=== PATIENT | male | born 1955 | race Caucasian/White ===

== ENCOUNTER 2024-04-15 06:29 | Inpatient (IN) | payer OTHER, SELFPAY ==
[2024-04-15] VITALS (41 sets, daily range): BP systolic 98–184; BP diastolic 51–98; BMI 34.5; BMI 33.8
--- NOTE | 2024-04-15 04:11 | ED.GENMED ---
History of Present Illness
General
Chief Complaint: Chest Pain
Source: patient
Exam Limitations: none
Time Seen by Provider: 04/15/24 03:17
Nursing documentation reviewed up to this point in time: agreed with
History of Present Illness
History of Present Illness:
Pleasant 68-year-old male presents to the emergency department with substernal nonradiating chest pain that began around 2 in the morning. Patient states that he is having symptoms for the last week. He works out daily and does cardio warm up and
cool down. During his cooldown he has been getting some chest pain during exertion. He was seen by his emulsification operator Dr. Gonzalez for the first time today, and scheduled for a stress test in 2 weeks. Patient is concerned because his dad had his
first heart attack at age 51 but ultimately lived to 87 years of age. His brother at age 61 from an NM. Patient tries to maintain a healthy lifestyle.
Past History
Past History
ED Past Medical History: HTN, Hypercholesterolemia and Other (Previous known left meniscal tear 2011 previous testicular cancer)
Social History
Tobacco: Non-smoker
Alcohol: Occasional
Family History
Family History: Negative Diabetes
Review of Systems
Review of Systems
Allergies reviewed?: Yes
All Other Systems: ROS reviewed and negative except as documented in HPI and ROS
Constitutional: Reports no symptoms
EENT: Reports no symptoms
Respiratory: Reports no symptoms
Cardiac: Reports chest pain and other (Dyspnea on exertion)
ABD/GI: Reports no symptoms
: Reports no symptoms
Musculoskeletal: Reports no symptoms
Skin: Reports no symptoms
Neurological: Reports no symptoms
Endocrine: Reports no symptoms
Hematologic/Lymphatic: Reports no symptoms
Psychiatric: Reports no symptoms
Phy Exam
General Physical Exam
General Presentation: well appearing and no apparent distress
General Skin: warm and dry
General Habitus: normal
General Mental: alert
General Hydration: appears well hydrated
ENT Exam
ENT Exam: EOMI, pharynx normal, neck supple and normocephalic
Eye Exam
Eye Exam: PERRL, cornea clear and conjunctiva normal
Cardiovascular Exam
Cardiovascular Exam: regular rate/rhythm, no edema, no murmur and normal peripheral pulses
Pulmonary Exam
Pulmonary Exam: lungs clear, no respiratory distress, no rales, no crackles, no rhonchi, no stridor, no wheezing and no cough
Gastrointestinal Exam
Gastrointestinal Exam: normal bowel sounds, non tender, soft, no organomegaly, no pulsatile mass and non distended
Neurological Exam
Neurological Exam: alert, oriented x3, no motor deficits and speech normal
Musculoskeletal Exam
Musculoskeletal Exam: full ROM and no edema
Skin Exam
Skin Exam: normal color, warm/dry, no rash and no petechia
Psychiatric Exam
Psychiatric Exam: normal mood/affect
Scores
Heart Score for Chest Pain Patients
STEMI patient?: No
History: Highly Suspicious
ECG: Nonspecific Repolarization
Age: >/= 65 years
Risk Factors: 1 or 2 Risk Factors
Troponin: >1 - <3 x Normal Limit
Heart Score for Chest Pain Patients: 7
Heart Score Risk: 72.7 % MACE over next 6 weeks
Course
Orders/Labs/Results
Orders:
Orders
04/15/24 02:30
ECG [Electrocardiogram (*1)] Urgent
Reason for Study: Chest Pain
EKG- Treatment ONCE
04/15/24 03:59
Complete Blood Count/With Diff Urgent
Comprehensive Metabolic Panel Urgent
Troponin I Urgent
04/15/24 05:10
PTT Urgent
Comment: Obtain baseline before beginning heparin infusion if not already collected
Heparin 4,000 units IV NOW STA
Nursing to Place Non Medication Order As Directed
Physician Order: PTT 6 hours after initial start of Heparin infusion
04/15/24 05:13
CR Chest - 2 Views Urgent
Comment:
Reason For Exam: cp
04/15/24 05:15
Heparin 37031 Units/250 ml 25,000 units in 250 ml IV PER PROTOCOL
Weight to be used for heparin protocol in kilograms (kg):: 99.8
Protocol:: Cardiac Tx/Acute Coronary
PTT Goal Range to be used:: PTT 73 to 111 seconds
Order type:: Initial
INITIAL Infusion Dose (UNITS/KG/hr) & then follow protocol:: 15 units/kg/hr
Infusion Dose in UNITS/hr & then follow protocol (UNITS/hr):: 1,500
INFUSION RATE in mL/hr & then follow protocol (mL/hr):: 15
PTT less than or equal to 64 seconds:: Increase rate by 200 units/hr (+ 2 mL/hr)
PTT 64.1 to 72.9 seconds:: Increase rate by 100 units/hr (+ 1 mL/hr)
PTT 73 to 111 seconds:: Target Range. No change in rate.
PTT 111.1 to 130.9 seconds:: Decrease rate by 100 units/hr (- 1 mL/hr)
PTT 131 to 199.9 seconds:: HOLD for 1 hr. Then decrease rate by 200 units/hr (- 2 mL/hr)
PTT greater than or equal to 200 seconds:: HOLD for 2 hrs & Notify Provider. Then decrease by 200 units/hr (-
2 mL/hr)
Lab follow-up:: Each change, PTT q6h until 2 consecutive are therapeutic. Then PTT
daily.
04/15/24 05:58
Admit/Transfer Patient As Directed
Co-Sign Provider:
Level of Care: Inpatient admission
Assign to:: IVU
Physician / Group: Jesus
Diagnosis: NSTEMI
Reason for Hospitalization: NSTEMI
Expected length of stay greater than two midnights?: Yes
ELOS- Estimated Length of Stay in days: 3
I certify the patient meets the requirements for IP care: Yes
04/15/24 05:59
Code Status As Directed
Resuscitation Status: Full Code
PRN Pain Medication Management As Directed
May give lesser potent ordered pain med per pt: Yes
preference::
Protocol:: Medication orders for pain may be administered in a
manner that supports deferring to patient preference
when the pt is:
- Requesting an ordered lesser potent pain medication.
Least to most potent pain medications are defined
as: acetaminophen < NSAID < tramadol < opioids
(morphine, oxycodone, hydromorphone).
- Requesting a lesser dose of the same medication IF
ORDERED.
- Requesting a less intrusive route of administration
if both routes are prescribed by the provider (PO <
IV).
04/15/24 06:14
EKG [Electrocardiogram (*1)] Urgent
Reason for Study: Chest Pain
Abnormal Lab Results
04/15/24
03:59
MCH 31.4 H pg
(27.0-31.0)
Glucose 151 H mg/dl
(70-99)
Troponin I 0.044 H* ng/ml
04/15/24 03:59
04/15/24 03:59
Vital Signs
Initial and Last Documented VS:
Initial Vital Signs
Pulse Resp BP Pulse Ox
64 18 184/94 98
04/15/24 02:39 04/15/24 02:39 04/15/24 02:39 04/15/24 02:39
Last Documented Vital Signs
Pulse Resp BP Pulse Ox
67 14 138/81 98
04/15/24 06:00 04/15/24 06:00 04/15/24 06:00 04/15/24 02:39
*Pulse Oximetry
Patient hypoxic: no
*EKG
Interpreted by ED Provider?: Yes
Interpretation: abnormal
Heart Rate: 72
Rate: normal
Rhythm: PVC's
QRS Pattern: normal QRS
Ischemia: non-specific ST changes
*Vrt Mechanic Interpretation
Rate: normal
Interpretation: normal
Heart Rate: 66
Rhythm: sinus
*Critical Care Note
Total Time (30-74mins, 75-104mins- exclusive of procedures): 30 (Critical care statement: A total of 30 minutes of critical care time was provided for this patient. This time is separate from time utilized to perform the aforementioned documented
procedures. Aggregate critical care time includes only time during which I was engaged in work directl)
ED Attending Note
-
Portions of this chart may have been created with voice recognition software.� Occasional wrong word or��sound alike� substitutions may have occurred due to the inherent limitations of voice recognition software.
Discharge Plan
Departure
Patient Disposition: Admit
Date of Disposition: 04/15/24
Time of Disposition: 05:15
Presentation/result/management discussed w/ accepting MD/DO: Hospitalist
Discharge Problem:
ACS (acute coronary syndrome)
Interventions
Interventions:
*Risk Screen - Suicide Last Done: 04/15/24 02:30
*General Assessment Last Done: 04/15/24 04:00
*Neglect/Abuse Screening Last Done: 04/15/24 02:30
ED- Fall Risk Assessment Last Done: 04/15/24 04:00
*ED COVID-19 Vaccine History Last Done: 04/15/24 06:07
ED- Cardiac Assessment Last Done: 04/15/24 02:30
[2024-04-15 04:15] LABS: % Basophils 0.9 % (0-2); % Eosinophils 4.1 % (0-6); % Immature Granulocytes 0.2 % (0-0.5); % Lymphocytes 27.7 % (20.5-51.1); % Monocytes 7.2 % (1.7-9.3); % Neutrophils 59.9 % (42.2-75.2); Absolute Basophils 0.1 10^3/uL (0-0.2); Absolute Eosinophils 0.3 10^3/uL (0-0.7); Absolute Lymphocytes 1.8 10^3/uL (1.2-3.4); Absolute Monocytes 0.5 10^3/uL (0.1-0.6); Absolute Neutrophils 3.9 10^3/uL (1.4-6.5); Hematocrit 45.3 % (39.0-52.0); Hemoglobin 15.9 g/dL (13.0-18.0); Mean Corp Hgb Conc. 35.1 g/dL (33.0-37.0); Mean Corpuscular Hgb 31.4 pg (27.0-31.0); Mean Corpuscular Volume 89.3 fL (80.0-94.0); Mean Platelet Volume 10.3 fL (7.4-10.4); Nucleated Red Blood Cells % 0 % (-); Platelet Count 186 10^3/uL (130-400); Red Blood Cell Count 5.07 10^6/uL (4.70-6.10); Red Cell Dist. Width 11.8 % (11.5-14.5); White Blood Cell Count 6.5 10^3/uL (4.8-10.8)
[2024-04-15 04:36] LABS: ALT (SGPT) 47 U/L (0-50); AST (SGOT) 39 U/L (17-59); Albumin 4.5 g/dl (3.5-5.0); Alkaline Phosphatase 71 U/L (38-126); Blood Urea Nitrogen 17 mg/dl (9-20); Calcium 9.4 mg/dl (8.4-10.2); Carbon Dioxide 25 mmol/L (22-30); Chloride 102 mmol/L (98-107); Glucose 151 mg/dl (70-99); Potassium 4.4 mmol/L (3.5-5.1); Sodium 138 mmol/L (135-145); Total Bilirubin 0.8 mg/dl (0.2-1.3); Total Protein 7.1 g/dl (6.3-8.2); eGFR > 60.00
[2024-04-15 04:56] LABS: Troponin I 0.044 ng/ml
[2024-04-15] MEDS: HEPARIN 4000 UNITS IV (05:59)
--- NOTE | 2024-04-15 06:04 | HPS.HSE ---
Family Physician
-
Family Physician: NOT KNOW UNKNOWN - PT DOES
Chief Complaint
-
Chest Pain
History of Present Illness
Patient is a 68y M with PMH significant for testicular cancer who presents to ED complaining of chest pain. Patient states that he has noted L sided chest discomfort / L shoulder discomfort with exertion over the past week or so. He experienced
these symptoms during work-outs. He had associated SOB / ALVAREZ. His symptoms did improve with rest. Patient was seen by Cardiology 04/14 for evaluation of his persistent symptoms. Further outpatient evaluation was scheduled including stress test
and echo.
This evening, patient woke from sleep around 2 AM with crushing substernal chest pain. This pain was distinctly different from his prior, left-sided, exertional pain.
Pain was described as 'sitting on my chest' and was initially accompanied by diaphoresis.
Patient presented to the ED for further evaluation. His pain was 6/10 at it's peak. At the time of my examination his pain is 2/10.
He has no additional symptoms at this time.
Patient has no personal history of heart disease; however, he does have strong family history of CAD.
He takes ASA 81mg daily and no other chronic medications.
Medical History
Past Medical History
Past Medical History: Reports Other
Additional Past Medical History:
Testicular Cancer s/p Surgery and Chemo
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
Past Surgical History: Reports Other
Additional Past Surgical History:
Left Orchiectomy
Right Inguinal Hernia Repair
Left Shoulder Surgery
Tight RISA
T&A
Social History
Tobacco: Non-smoker
Alcohol: Occasional
Drug: None
Family History
Family History: Other (PGF: CAD Father: CAD Mother: DM, intracranial hemorrhage Brother: CAD)
Allergies / Home Medications
Allergies reflects when Allergies were last updated in [employer].
Home Medications with original date entered in [employer]
Allergy/Medication List:
Allergies
Allergy/AdvReac Type Severity Reaction Status Date / Time
No Known Allergies Allergy Verified 04/15/24 02:41
Home Medications
aspirin 81 mg tablet,delayed release 81 mg PO DAILY 01/28/18
Review of Systems
-
History Source: Patient
A 12 point ROS was completed and negative except as noted: Yes
Constitutional: Denies Fever or Chills
Respiratory: Reports Trouble Breathing; Denies Cough
Cardiac: Reports Chest Pain and Diaphoresis; Denies Palpitations
Abdomen/GI: Denies Abdominal Pain, Nausea, Vomiting or Diarrhea
: Denies Dysuria or Frequency
Musculoskeletal: Denies Joint Pain or Edema
Neurological: Denies Dizzy or Headache
Psych: Denies Depression or Anxiety
Physical Exam
Vital Signs
Vital Signs
Pulse Resp BP Pulse Ox
62 23 147/81 98
04/15/24 05:00 04/15/24 05:00 04/15/24 05:00 04/15/24 02:39
Physical Exam
General: Other (68y M in no acute distress.)
HEENT: Moist mucous membranes, PERRLA and Other (Thick neck.)
Respiratory: Clear; No Wheezes, Rales or Rhonchi
Cardiac: S1/S2 and Regular Rhythm; No Murmur
GI: Soft, Non Tender, Non Distended and Normal Bowel Sounds
Musculoskeletal: No Clubbing, No Cyanosis and No Edema
Neuro: AO x 3
Laboratory Results
-
04/15/24 03:59
04/15/24 03:59
Laboratory Results
Total Bilirubin 0.8 mg/dl (0.2-1.3) 04/15/24 03:59
AST 39 U/L (17-59) 04/15/24 03:59
ALT 47 U/L (0-50) 04/15/24 03:59
Alkaline Phosphatase 71 U/L (38-126) 04/15/24 03:59
Troponin I 0.044 ng/ml H* 04/15/24 03:59
Impression/Plan
-
A/P: Patient is a 68y M with PMH significant for testicular cancer and strong family history of CAD who presents to ED complaining of crushing substernal chest pain that woke him from sleep.
NSTEMI / ACS
- Admit for further evaluation and treatment.
- One week of exertional symptoms and woke this evening with more severe / different chest pain.
- EKG with non-specific ST changes - specifically in V2 - V4 - new compared to prior. Repeat tracing now to assess for evolution.
- Initial troponin is 0.044 - trend to peak.
- Pain improved, but not fully resolved. Begin IV NTG gtt and titrate as needed until pain free.
- IV heparin.
- ASA, statin, beta-caryn.
- Cardiology evaluation for further recommendations and probable ischemic evaluation.
- Follow for any new / worsening pain or other symptoms.
- Check lipid panel, A1C, etc.
History of Testicular Cancer s/p Surgery and Chemo
History of Inflammatory Lung Disease
- Both resolved. No active / ongoing issues.
DVT Prophylaxis: On IV Heparin
Code Status: Full
[2024-04-15] MEDS: HEPARIN 25000 UNITS/250 ML IV (06:48)
[2024-04-15 07:08] LABS: APTT 121.7 Sec (23.4-35.0)
--- NOTE | 2024-04-15 07:20 | EDRN ---
Report given to BERT Blackman in IVU.
--- NOTE | 2024-04-15 08:12 | EDRN ---
Patient taken to room 2258 on monitor with Heparin drip infusing at 1500 units/HR. Patient with c/o 'constant nagging' in his chest but not pain. Patient stated that it's not the same feeling that brought him to the hospital. BERT Blackman updated at
bedside.
--- NOTE | 2024-04-15 08:30 | CON.CAR ---
Consultation
Consultation Request
Date/Time Consultation Requested: 04/15/24 0800
Date/Time Consultation Performed: 04/15/24 0830
Requesting Provider: Dr. Lee
Performing Provider: Kristine VYAS for Dr. Gonzales
Reason for Consultation: NSTEMI
Medical History
-
Chief Complaint: chest discomfort
History of Present Illness:
68 y/o male (patient of Dr. Gonzalez) with hypertension and family history of early CAD (dad and brother) who was seen as a new patient in our cardiology office yesterday for exertional left/arm chest discomfort. Also has noted some ALVAREZ. Stress
test and echo were ordered for further evaluation. However, overnight, he developed chest discomfort- midsternal feels like something sitting on his chest. First trop is 0.044. At the time of my assessment, he is calm and in no distress, but
continued to have low level chest discomfort (never resolved). Nitro SL given (improved discomfort) and he is being placed on a nitro drip.
Past Medical History
Past Medical History: HTN
Past Surgical History: Orthopedic
Social History
Tobacco: Non-Smoker
Alcohol: Occasional
Personal:
Living: With Family
Family History
Family History: Early CAD (dad bypass age 51)
Allergies / Home Medications
Allergy/AdvReac Type Severity Reaction Status Date / Time
No Known Allergies Allergy Verified 04/15/24 02:41
�Medication �Instructions �Recorded �Confirmed �Type
aspirin 81 mg tablet,delayed 81 mg PO DAILY 01/28/18 04/15/24 History
release
Review of Systems
-
History Source: Patient
All other systems: Negative unless noted
Respiratory: Trouble Breathing (ALVAREZ at times)
Cardiac: Chest Pain (as described)
Physical Exam
Vital Signs
Temp Pulse Resp BP Pulse Ox
98.1 F 69 18 130/88 98
04/15/24 08:06 04/15/24 08:14 04/15/24 08:14 04/15/24 08:14 04/15/24 08:14
Lab Results
04/15/24 03:59
04/15/24 03:59
Troponin I Cancelled 04/15/24 20:00
Physical Exam
General: Well Developed, Well Nourished and No Apparent Distress
HEENT: Normocephalic and Anicteric
Respiratory: Clear and Non Labored Respirations
Cardiac: Regular Rhythm
Musculoskeletal: No Edema
Skin: Warm and Dry
Neuro: AO x 3
Psych: Calm
Impression / Plan
-
NSTEMI:
-first trop 0.044- trend to peak, EKG unremarkable
-nitro SL given (helped with CP), nitro drip being started, which requires intensive monitoring
-continue IV heparin, which requires intensive monitoring
-cardiac labor specialist today- risk/benefits discussed with patient
-check echo today
-full dose ASA now, then continue 81 mg daily. Statin initiated- check lipids. Check hgbA1C. BB also started.
HTN:
-BB started
-monitor on nitro drip
Data Reviewed
-
EKG: Tracing Personally Visualized and interpreted (NSR with LAD)
Radiology: Report Reviewed by me (no acute disease of the chest)
Labs: Labs Reviewed by me
Scores
PAUL for NSTEMI
Age >/= 65: Yes
>/=3 CAD risk factors-HTN,High Chol,Fam hx CAD,DM,Smoker: No
Known CAD (stenosis >/=50%): No
ASA use in past 7 days: Yes
Severe angina (>/= 2 episodes in 24 hrs): No
EKG ST Changes >/= 0.5mm: No
Positive cardiac marker: Yes
Score: 3
Risk at 14 days-mortality, new/recurrent VA, severe ischemia: Intermediate Risk- 13% Risk at 14 days- all cause mortality, new or recurrent VA, or severe recurrent ischemia requiring urgent revascularization
[2024-04-15] MEDS: NITROSTAT (SUBLINGUAL) 0.4 MG SL (08:58)
[2024-04-15] MEDS: LOPRESSOR 25 MG PO ×2 (08:59→19:26)
[2024-04-15] MEDS: ASPIRIN 325 MG PO (08:59)
[2024-04-15] MEDS: NITROGLYCERIN PREMIX 250 IV (09:04)
[2024-04-15 10:43] LABS: Glycohemoglobin (HgbA1c) 6.5 % (4.0-5.6)
--- NOTE | 2024-04-15 11:24 | PTCARENOTE ---
Patient admitted from the ED with Nstemi. Oriented to room and plan of care. Patient seen by Dr. Carrero, plan for cardiac cath today. IV heparin infusing at 1500 units/hr, IV NTG started as ordered at 5mcg/min. Given NTG SL x 1 upon admission for
midsternal chest pressure patient had difficulty rating but stated it was less than when he first came to the ED, following NTG chest pain is 1/10. Monitoring VS, SR on the monitor, echo done and at the bedside. Call hanna in reach, admission
assessment completed.
--- NOTE | 2024-04-15 12:37 | PTCARENOTE ---
Patient taken for his cardiac cath.
[2024-04-15 13:10] LABS: ACT-LR - POC 374 Seconds (116-155)
[2024-04-15 14:13] LABS: ACT-LR - POC 397 Seconds (116-155)
[2024-04-15] MEDS: NSS 1000 IV (14:30)
--- NOTE | 2024-04-15 14:57 | CM ---
CM following for DC planning needs.
Met w/ patient at bedside to complete initial assessment.
Pt. resides in a private home w/ his spouse. Functionally, patient is indep. at baseline w/ ADLs, mobility without the use of any assisted device.
Antic. DC plan is for home without needs.
Will cont. to follow.
[2024-04-15 15:00] LABS: ACT-LR - POC > 397 Seconds (116-155)
--- NOTE | 2024-04-15 15:40 | CM ---
Priced Brilinta thru patient's pharmacy plan, [facility]- [phone]. Estimated cost of Brilinta for a 30 d supply is 72.60.
Can provide a free 30 d coupon to pt.
--- NOTE | 2024-04-15 15:48 | ITS.CL.ANGIO ---
Farm Manager - Angioplasty
Angioplasty
Procedure Report:
CARDIAC CATHETERIZATION REPORT
Date of Procedure: 04/15/2024
Referring: Elroy Gonzales D.O.
INDICATION: Non-ST elevation myocardial infarction.
PROCEDURE:
1. Left heart catheterization
2. Coronary angiography
3. Shockwave coronary lithotripsy of the mid LAD.
4. Successful PCI of the first diagonal.
5. Successful IVUS guided diagonal of the proximal and mid LAD.
A total of 89 minutes of procedural/moderate sedation was utilized. An independent ophthalmic medical technician was present to assist with and help manage the patient's level of consciousness and physiologic status.
ACCESS:
1. 6 [place] right radial artery using a modified Seldinger technique.
CATHETERS:
1. 5 [place] JR4.
2. 5 [place] JL 3.5.
3. 6 [place] EBU 3.5 guiding catheter.
HEMODYNAMIC DATA
Weight (kg): 97.5
AO (s/d/x, mmHg): 104/71/85
LV (s/x mmHg): 104/14
LEFT VENTRICULOGRAPHY: Not performed.
CORONARY ANGIOGRAPHY
Dominance: Right.
Left Main: Congenitally absent.
LAD: Large size vessel arising directly from the aorta and giving rise to 2 significant diagonals before wrapping around the apex. There is a densely calcified, 70-80% lesion in the proximal vessel. The mid vessel is occluded immediately after
the origin of the second diagonal. There is a 90% lesion in the proximal margin of the first diagonal.
Ramus: Congenitally absent.
Circumflex: Large size, nondominant vessel giving rise to 2 large obtuse marginals. OM1 is arises very high off of the circumflex. There is no coronary artery disease.
RCA: Large size, dominant vessel with a significant posterolateral arcade. There are minor luminal irregularities throughout.
INTERVENTION(S)
1. Successful intracoronary lithotripsy of the proximal and mid LAD (shockwave 3.0 x 12 lithotripsy balloon).
2. Successful PCI of the 90% proximal first diagonal lesion (Medtronic [place] Starke 2.0 x 15 OSMIN, postdilated with a 2.0 NC balloon) with reduction in stenosis to 0%, maintaining PAUL-3 flow.
3. Successful IVUS guided PCI of the proximal and mid LAD lesions (overlapping Medtronic Pee Star[place] 3.0 x 30 OSMIN, 4.0 x 12 OSMIN, postdilated with a 3.0 NC balloon throughout and a 4.5 NC balloon in the proximal margin) with reduction in stenosis
to 0%, restoring PAUL-3 flow.
Narrative:
The decision was made to proceed with percutaneous coronary intervention. The diagnostic catheter was removed over a wire and a 6Fr EBU 3.5 guiding catheter was advanced to the aortic root and seated in the left anterior descending artery.
Additional heparin was given and a Power Turn Flex wire was advanced into the distal LAD with some difficulty crossing the mid LAD occlusion, possibly suggesting chronicity. The 100% mid LAD lesion was predilated with a 2.0 x 12 semi-compliant
balloon to 12 belkys, restoring PAUL-3 flow, also demonstrating that the power turn flex wire was in the second diagonal but distal to the site of occlusion. After evaluating the downstream size of the vessel, the decision was made to predilate more
aggressively. A 3.0 x 20 semicompliant balloon was advanced. The mid LAD and proximal LAD were dilated up to 14 belkys. There was a notable waist in the balloon around the site of occlusion. The 3.0 x 20 semicompliant balloon was withdrawn and a
2.75 x 15 noncompliant balloon was advanced to allow for high-pressure dilation with minimal overexpansion to limit the risk of dissection. The mid LAD lesion was dilated to 20 belkys, though the waist in the balloon remained.
The decision was made to perform intracoronary imaging. A 6 [place] guide liner was advanced over one of the balloons to allow for delivery. An IVUS catheter was advanced through the guiding catheter and into the ostium of the artery. Ring down was
performed once the imaging crystal was no longer inside of the guiding catheter. The IVUS catheter was advanced into the mid LAD, beyond the site of occlusion. Intravascular ultrasound was performed in a retrograde fashion using a slow pullback.
Intracoronary imaging demonstrated dense calcification of the vessel occlusion site with moderate to severe atherosclerosis throughout the entire proximal vessel. Vessel sizing measurements were obtained.
Given the burden of calcification, the decision was made to proceed with plaque modification. A Shockwave 3.0 x 12 coronary lithotripsy balloon was advanced over the wire and into the mid LAD lesion. The balloon was sterilely connected to the
controller and prepped to negative pressure. Meticulous care was taken while positioning the shockwave balloon. Once in satisfactory position, the balloon was inflated to 4 belkys. After confirming good contact with the vessel wall, 10 pulses were
delivered. After delivering 10 pulses, the balloon was inflated to 6 belkys then deflated. The entire proximal and mid LAD lesion was treated in a similar manner for total of 8 rounds.
The decision was made to proceed with percutaneous coronary intervention on the first diagonal before jailing the vessel. A BMW wire was advanced into the LAD and the power turn flex wire was pulled back from the second diagonal where it had
originally rested. We attempted to turn the power turn flex into the diagonal artery, but the distal tip of the wire proved to misshapen to be useful. The wire was removed and a fresh power turn flex wire was advanced into the first diagonal. The
90% proximal D1 lesion was predilated with a 2.0 x 12 semi-compliant balloon to 12 belkys. The semi-compliant balloon was removed and a Medtronic Pee Starke 2.0 x 15 drug-eluting stent was advanced. The stent was deployed at 12 atmospheres. The
stent balloon was removed. A 2.0 x 8 noncompliant balloon was advanced into the stent and the stent was postdilated to 14 atmospheres. Angiography was performed in orthogonal views, confirming good stent expansion and an excellent angiographic
result.
We then turned our attention back to the LAD. A Medtronic Pee [place] 3.0 x 30 drug-eluting stent was advanced. Meticulous care was taken while positioning the stent, ensuring that the distal aspect cover the entire mid LAD lesion. The proximal
margin of the LAD increased significantly in size, requiring a different size stent. The stent was deployed at 12 atmospheres. The stent balloon was removed. A 3.0 x 20 noncompliant balloon was advanced into the stent and the stent was postdilated
to 15 atmospheres. A Medtronic [place] Starke 4.0 x 12 drug-eluting stent was advanced into the proximal LAD. We positioned the stent, ensuring that the distal margin was overlapping with the mid LAD stent in the proximal margin cover the entire
proximal LAD lesion. The stent was deployed at 12 belkys. A 4.0 x 12 NC balloon was advanced and the stent, including the overlap was postdilated to 14 belkys. IVUS was repeated throughout the entire stented segment showing good stent expansion and
apposition throughout the entire vessel, with the exception of the proximal margin of the second LAD stent, showing mild mall apposition due to the vessel size. The IVUS catheter was withdrawn and a 4.5 x 8 noncompliant balloon was advanced. The
proximal margin of the proximal LAD stent was dilated to 14 belkys. The noncompliant balloon was withdrawn. Angiography was performed in orthogonal views, confirming good stent expansion and an excellent angiographic result. The coronary wire was
withdrawn and the guide was disengaged from the artery. The catheter was removed over a standard J-wire.
Closure Device: Vascular band.
Radiation (mGy): 1189.60
DAP (cm2.Gy): 68.1347
Fluoroscopy time (minutes): 26.3
CONCLUSIONS
1. Right dominant circulation with luminal irregularities in the RCA, and 90% lesion in the proximal margin of the first diagonal status post successful PCI (Medtronic [place] Starke 2.0 x 15 OSMIN, postdilated with a 2.0 NC balloon), a densely
calcified, 70-80% lesion in the proximal LAD followed by a 100% occlusion of the mid LAD immediately after the origin of the first diagonal, status post successful coronary lithotripsy (shockwave 3.0 x 12 lithotripsy balloon) and IVUS guided PCI
(overlapping Medtronic Pee Starke 3.0 x 30 OSMIN, 4.0 x 12 OSMIN, postdilated with a 3.0 NC balloon throughout and a 4.5 NC balloon in the proximal margin) with reduction in stenosis to 0%, restoring PAUL-3 flow.
2. Normal filling pressures (LVEDP = 14 mmHg at 97.5 kg).
RECOMMENDATIONS:
1. Expectant management after cardiac catheterization via right radial approach.
2. Limited weight bearing on the right wrist for one week.
3. Dual antiplatelet therapy with aspirin and ticagrelor for at least 12 months, followed by aspirin indefinitely.
4. Aggressive secondary prevention with high-dose, high potency statin. Goal LDL <55.
5. Guideline directed medical therapy as hemodynamics will tolerate.
6. Echocardiogram ordered and pending.
7. Referral to cardiac rehab.
Copy to: Ramana Dougherty M.D., Jayson Gonzalez M.D.
Elroy Gonzales DO, FACC, FACP
--- NOTE | 2024-04-15 15:56 | PTCARENOTE ---
Patient returned from cardiac cath at 1420 with radial band in place right wrist. Reinforced post cath restrictions. 98% pulse ox on right hand, monitoring VS, patient denies any pain other than some mild left shoulder discomfort which patient
thinks is from his positioning and due to an old rotator cuff injury/repair. Post EKG done, at the bedside, call hanna in reach.
--- NOTE | 2024-04-15 17:14 | W.PN.HOSP.TC ---
Today's Communication/Plan
-
Assessment / Plan
Assessment / Plan
Gen-AAOx3, NAD
HEENT-NC, AT, anicteric, clear oral mm
Neck-supple
CV-reg, no M, +S1/S2
Lungs-clear B/L
Abd-soft, NT, ND
Musculoskeletal-no edema, no deformity
Skin-warm and dry
Neuro-grossly non-focal
Psych-calm, cooperative
Mr. Membreno is a 68-year-old male with a medical history of testicular cancer (treated) who presented with persistent left chest and shoulder discomfort with exertion over the past week associated with shortness of breath worse with exertion. His
symptoms progressed until he reported crushing chest pain. In the ED troponins were elevated with EKG showing abnormal ST changes in V2 through V4 new compared to previous. He was started on IV heparin drip and nitroglycerin drip. He has been
admitted for management of NSTEMI.
NSTEMI:
-Continue IV heparin drip and nitroglycerin drip
-Plan for cardiac catheterization today
-Continue aspirin, statin, beta-caryn
-Patient has significant family history of coronary artery disease by the age of 50, has no personal history of cardiac disease before now
-Hemoglobin A1c 6.5%, will monitor blood glucose and start on an oral antihyperglycemic regimen
CODE STATUS: Full code
Anticipated Discharge: 24 - 48 hours
Subjective/Interval History
-
Date of Service: April 15, 2024
Patient was seen and examined at bedside this morning. On heparin and nitro drips. Currently chest pain-free and breathing comfortably. Plan for cardiac Clinical Research Administrator today.
Objective Data
-
Labs:
Laboratory Results
04/15/24 04/15/24
06:40 13:00
APTT 121.7 H Cancelled
Vital Signs:
Vital Signs
Temp Pulse Resp BP Pulse Ox
98.2 F 62 18 109/56 98
04/15/24 16:39 04/15/24 12:00 04/15/24 14:31 04/15/24 12:00 04/15/24 14:31
Review of Systems
-
History Source: Patient
All other systems: Reviewed and negative
Physical Exam
-
General: No Apparent Distress
[2024-04-15] MEDS: LIPITOR 40 MG PO (18:02)
[2024-04-15] MEDS: BRILINTA 90 MG PO (19:26)
--- NOTE | 2024-04-15 21:20 | PTCARENOTE ---
pt received at change of shift, pt seen and assessed in room. pt AOx3, no complaints of pain at this time. R radial site with gauze and tegaderm: c/d/i. this rn discussed poc, pt verbalizes understanding. call hanna within reach, continuing to
monitor at this time.
[2024-04-16] VITALS (9 sets, daily range): BP systolic 105–120; BP diastolic 58–101; BMI 33.8
[2024-04-16 04:56] LABS: Hemoglobin 15.2 g/dL (13.0-18.0); Mean Corp Hgb Conc. 34.5 g/dL (33.0-37.0); Mean Corpuscular Hgb 31.3 pg (27.0-31.0); Mean Corpuscular Volume 90.7 fL (80.0-94.0); Mean Platelet Volume 10.6 fL (7.4-10.4); Platelet Count 189 10^3/uL (130-400); Red Blood Cell Count 4.85 10^6/uL (4.70-6.10); Red Cell Dist. Width 11.8 % (11.5-14.5); White Blood Cell Count 9.1 10^3/uL (4.8-10.8)
[2024-04-16 05:20] LABS: Blood Urea Nitrogen 12 mg/dl (9-20); Calcium 8.6 mg/dl (8.4-10.2); Carbon Dioxide 27 mmol/L (22-30); Chloride 102 mmol/L (98-107); Estimated Creatinine Clearance 96 ml/min; Glucose 131 mg/dl (70-99); HDL Cholesterol 42 mg/dl; LDL Cholesterol, Calculated 108 mg/dl; Potassium 4.3 mmol/L (3.5-5.1); Sodium 138 mmol/L (135-145); Total Cholesterol 184 mg/dl (50-199); Triglyceride 173 mg/dl (10-149); Very Low Density Lipoprotein 34 mg/dl (0-30); eGFR > 60.00
[2024-04-16] MEDS: LOW STRENGTH ASPIRIN 81 MG PO (07:44)
[2024-04-16] MEDS: LOPRESSOR 25 MG PO (07:44)
[2024-04-16] MEDS: BRILINTA 90 MG PO ×2 (07:44→19:35)
--- NOTE | 2024-04-16 08:58 | W.PN.CD ---
Today's Communication / Plan
-
Trend troponin to peak.
Decrease metoprolol succinate to 25 mg daily.
Start losartan 25 mg daily.
Discharge planning.
Follow up echo in 90 days.
Impression / Plan
-
Impression/Plan: 68 y/o male with HTN and family history of premature CAD admitted with NSTEMI.
#NSTEMI:
-Acute, life threatening diagnosis.
-Cardiac catheterization revealed significant D1 disease and an occluded mLAD, now s/p PCI to D1 (Medtronic Pee 2.0 x 15 OSMIN) and lithotripsy/PCI to the proximal and mid LAD (overlapping Medtronic [place] 3.0 x 30 OSMIN, 4.0 x 12 OSMIN) with
IVUS guidance.
-Troponin up to 38.8. Trend to peak.
-DAPT with aspirin/ticagrelor for 12 months, followed by aspirin indefinitely.
-High dose, high potency statin.
-Decrease metoprolol succinate to 25 mg daily.
#ICMO:
-New diagnosis.
-GDMT as hemodynamics will tolerate.
-Decrease metoprolol to 25 mg daily.
-Start losartan 25 mg daily.
-No evidence of decompensated heart failure.
-Repeat echocardiogram in 90 days.
#HTN:
-Chronic, stable.
-Metoprolol started. Decrease dose to 25 mg daily due to relative bradycardia.
#HLD
-New diagnosis.
-Total cholesterol = 184, LDL = 108, HDL = 42, Triglycerides = 173.
-Continue atorvastatin 40 mg daily. Goal LDL < 55, triglycerides < 150.
#Disposition
-IVU status.
-Full code.
-Discharge planning, probably tomorrow.
Subjective/Interval History:
NSTEMI presented yesterday.
Cath showed LAD/D1 disease, s/p shockwave/PCI.
Echo shows LAD territory hypokinesis with mildly depressed systolic function (LVEF 45-50%).
HR 50-60 on metoprolol 25 mg BID.
DATA:
Echocardiogram, 04/15/2024:
CONCLUSIONS
Normal left ventricular size with mildly reduced systolic function. LVEF 45-
50%.
LAD regional wall motion abnormality with severe hypokinesis of the mid to
apical septum and the entire apex.
Normal right ventricular size and function.
No significant valvular disease.
Dilated aortic root (SOV 4.1 cm).
No prior study available for comparison.
Cardiac Catheterization, 04/15/2024:
CONCLUSIONS
1. Right dominant circulation with luminal irregularities in the RCA, and 90% lesion in the proximal margin of the first diagonal status post successful PCI (Medtronic Pee [place] 2.0 x 15 OSMIN, postdilated with a 2.0 NC balloon), a densely
calcified, 70-80% lesion in the proximal LAD followed by a 100% occlusion of the mid LAD immediately after the origin of the first diagonal, status post successful coronary lithotripsy (shockwave 3.0 x 12 lithotripsy balloon) and IVUS guided PCI
(overlapping Medtronic [place] 3.0 x 30 OSMIN, 4.0 x 12 OSMIN, postdilated with a 3.0 NC balloon throughout and a 4.5 NC balloon in the proximal margin) with reduction in stenosis to 0%, restoring PAUL-3 flow.
2. Normal filling pressures (LVEDP = 14 mmHg at 97.5 kg).
Physical Exam
Vital Signs/Labs
Vital Signs
Temp Pulse Resp BP Pulse Ox
36.7 C 55 16 111/67 96
04/16/24 07:43 04/16/24 05:00 04/16/24 07:43 04/16/24 03:58 04/16/24 07:43
04/14/24 04/15/24 04/16/24
11:59 11:59 11:59
Actual Weight 97.8 kg 97.7 kg
04/16/24 04:21
04/16/24 04:21
APTT Cancelled 04/15/24 13:00
Triglycerides 173 mg/dl (10-149) H 04/16/24 04:21
LDL Cholesterol, Calc 108 mg/dl 04/16/24 04:21
VLDL Cholesterol, Calc 34 mg/dl (0-30) H 04/16/24 04:21
HDL Cholesterol 42 mg/dl 04/16/24 04:21
LAB Results
04/15/24 04/15/24 04/15/24
03:59 08:00 10:14
Troponin I 0.044 H* Cancelled 2.770 H* D
04/15/24 04/15/24 04/15/24
14:00 16:44 20:00
Troponin I Cancelled 38.800 H* D Cancelled
Physical Exam
Constitutional: No acute distress and Comfortable
EENT: Anicteric and Moist mucous membranes
Cardiovascular: Rhythm & rate is regular, Pedal edema is absent, JVD pressure is normal, S1S2 is normal and Murmur/rub/gallop absent
Respiratory: Respiratory effort normal, Lungs clear to auscul., Wheeze Absent, Crackles Absent and Rhonchi Absent
GI: Soft, Distention absent, Flat, Non tender and Normal bowel sounds
Neuro/Psych: AO x 3
Other: Cath Site (Right radial access site is C/D/I.)
Data Reviewed
-
Date of Service: April 16, 2024
Medical Decision Making: Reviewed Test Results, Independent Historian Assessment and Test Interpretation
EKG: Tracing Personally Visualized and interpreted and Report Reviewed by me
Echo: Tracing Personally Visualized and interpreted and Report Reviewed by me
X-Ray/CT/US/MRI/NUC/PET: Image Personally Visualized and interpreted and Report Reviewed by me
Medical Tests (PFT, Pathology etc): Image Personally Visualized and interpreted and Report Reviewed by me
Labs: Labs Reviewed by me
Old Records: Reviewed
[2024-04-16] MEDS: COZAAR 25 MG PO (10:29)
--- NOTE | 2024-04-16 11:46 | PTCARENOTE ---
Rec'd pt at handoff. AOX3. Tele- SR. R radial site is c/d/i. No bleeding/hematoma noted. Pt has no complaints at this time. Currently in bed; call jacques w/in reach.
--- NOTE | 2024-04-16 14:44 | CM ---
CM continues to follow for DC planning needs.
Met w/ patient and spouse at bedside.
We reviewed estimated cost of Brilinta. Will provide free 30 d coupon.
Anticipated DC plan is for home without needs.
Will cont. to follow.
--- NOTE | 2024-04-16 14:55 | W.PN.HOSP.TC ---
Today's Communication/Plan
-
Assessment / Plan
Assessment / Plan
Gen-AAOx3, NAD
HEENT-NC, AT, anicteric, clear oral mm
Neck-supple
CV-reg, no M, +S1/S2
Lungs-clear B/L
Abd-soft, NT, ND
Musculoskeletal-no edema, no deformity
Skin-warm and dry, right wrist vascular access site clean dry intact
Neuro-grossly non-focal
Psych-calm, cooperative
Mr. Membreno is a 68-year-old male with a medical history of testicular cancer (treated) who presented with persistent left chest and shoulder discomfort with exertion over the past week associated with shortness of breath worse with exertion. His
symptoms progressed until he reported crushing chest pain. In the ED troponins were elevated with EKG showing abnormal ST changes in V2 through V4 new compared to previous. He was started on IV heparin drip and nitroglycerin drip. He has been
admitted for management of NSTEMI.
NSTEMI:
-Status post PCI with stenting to proximal and mid LAD and first diagonal yesterday 04/15, tolerated procedure well
-Continue DAPT with aspirin and Brilinta for at least 12 months, high intensity statin
-Beta-blockade with metoprolol succinate 25 mg daily
-Afterload reduction with losartan 25 mg daily
-Patient has significant family history of coronary artery disease by the age of 50, has no personal history of cardiac disease before now
-Hemoglobin A1c 6.5%, will monitor blood glucose and start on an oral antihyperglycemic regimen
Acute HFrEF:
-Appears to be ischemic, tolerated PCI with stenting yesterday 04/15
-Prior to cath, echocardiogram showed mildly reduced ejection fraction 45%
-Continue GDMT with metoprolol succinate and low-dose losartan
-Will need cardiac rehab after discharge
-Follow-up for repeat echocardiogram in 2 months
Hypertriglyceridemia:
-Triglycerides 173 on fasting lipid profile
-Continuing high intensity statin therapy
Diabetes mellitus type 2:
-Hemoglobin A1c 6.5 at time of admission
-Will start on low-dose metformin and monitor
CODE STATUS: Full code
Anticipated Discharge: 24 - 48 hours
Subjective/Interval History
-
Date of Service: April 16, 2024
Patient was seen and examined at bedside this morning. Feels well with no chest pain and is breathing comfortably. Tolerated cardiac cath yesterday with stenting.
Objective Data
-
Labs:
Laboratory Results
04/16/24
04:21
WBC 9.1
Hgb 15.2
Hct 44.0
Plt Count 189
Sodium 138
Potassium 4.3
Chloride 102
Carbon Dioxide 27
BUN 12
Creatinine 0.8
Glucose 131 H
Calcium 8.6
Vital Signs:
Vital Signs
Temp Pulse Resp BP Pulse Ox
98.3 F 62 20 117/71 98
04/16/24 11:20 04/16/24 13:45 04/16/24 11:20 04/16/24 11:21 04/16/24 11:20
I&O
04/15/24 04/16/24 04/17/24
06:59 06:59 06:59
Intake Total 400 / 400
Balance 400 / 400
Review of Systems
-
History Source: Patient
All other systems: Reviewed and negative
Physical Exam
-
General: No Apparent Distress
[2024-04-16] MEDS: LIPITOR 40 MG PO (17:32)
[2024-04-16] MEDS: GLUCOPHAGE 500 MG PO (17:33)
[2024-04-16 18:50] LABS: Hepatitis C Antibody Negative (Negative)
--- NOTE | 2024-04-16 21:22 | PTCARENOTE ---
pt received at change of shift. pt seen and assessed in room. pt AOx3, tele reading NSR. R radial c/d/i. no complaints of pain at this time. this rn discussed poc w pt, pt verbalizes understanding. call hanna within reach. continuing to monitor at
this time.
[2024-04-17 04:48] VITALS: BP 113/76
[2024-04-17 05:16] VITALS: BMI 33.8
[2024-04-17 05:18] LABS: Hematocrit 46.4 % (39.0-52.0); Mean Corp Hgb Conc. 34.5 g/dL (33.0-37.0); Mean Corpuscular Hgb 31.1 pg (27.0-31.0); Mean Corpuscular Volume 90.1 fL (80.0-94.0); Mean Platelet Volume 10.4 fL (7.4-10.4); Platelet Count 190 10^3/uL (130-400); Red Blood Cell Count 5.15 10^6/uL (4.70-6.10); Red Cell Dist. Width 11.8 % (11.5-14.5); White Blood Cell Count 9.5 10^3/uL (4.8-10.8)
--- NOTE | 2024-04-17 07:17 | W.PN.CD ---
Today's Communication / Plan
-
Tolerating GDMT and statin.
Discharge.
Impression / Plan
-
Impression/Plan: 68 y/o male with HTN and family history of premature CAD admitted with NSTEMI.
#NSTEMI:
-Acute, life threatening diagnosis.
-Cardiac catheterization revealed significant D1 disease and an occluded mLAD, now s/p PCI to D1 (Medtronic Pee 2.0 x 15 OSMIN) and lithotripsy/PCI to the proximal and mid LAD (overlapping Medtronic Onxy [place] 3.0 x 30 OSMIN, 4.0 x 12 OSMIN) with
IVUS guidance.
-Troponin peaked at 38.8.
-DAPT with aspirin/ticagrelor for 12 months, followed by aspirin indefinitely.
-Continue metoprolol 25 mg daily.
#ICMO:
-New diagnosis.
-GDMT with metoprolol/losartan as hemodynamics will tolerate.
-No evidence of decompensated heart failure.
-Repeat echocardiogram in 90 days.
#HTN:
-Chronic, stable.
-Continue metoprolol/losartan.
#HLD
-New diagnosis.
-Total cholesterol = 184, LDL = 108, HDL = 42, Triglycerides = 173.
-Continue atorvastatin 40 mg daily. Goal LDL < 55, triglycerides < 150.
-Repeat lipid panel in 3 months.
#Disposition
-IVU status.
-Full code.
-Likely discharge.
Subjective/Interval History:
No acute events.
No subjective complaints.
DATA:
Echocardiogram, 04/15/2024:
CONCLUSIONS
Normal left ventricular size with mildly reduced systolic function. LVEF 45-
50%.
LAD regional wall motion abnormality with severe hypokinesis of the mid to
apical septum and the entire apex.
Normal right ventricular size and function.
No significant valvular disease.
Dilated aortic root (SOV 4.1 cm).
No prior study available for comparison.
Cardiac Catheterization, 04/15/2024:
CONCLUSIONS
1. Right dominant circulation with luminal irregularities in the RCA, and 90% lesion in the proximal margin of the first diagonal status post successful PCI (Medtronic Pee [place] 2.0 x 15 OSMIN, postdilated with a 2.0 NC balloon), a densely
calcified, 70-80% lesion in the proximal LAD followed by a 100% occlusion of the mid LAD immediately after the origin of the first diagonal, status post successful coronary lithotripsy (shockwave 3.0 x 12 lithotripsy balloon) and IVUS guided PCI
(overlapping Medtronic [place] 3.0 x 30 OSMIN, 4.0 x 12 OSMIN, postdilated with a 3.0 NC balloon throughout and a 4.5 NC balloon in the proximal margin) with reduction in stenosis to 0%, restoring PAUL-3 flow.
2. Normal filling pressures (LVEDP = 14 mmHg at 97.5 kg).
Physical Exam
Vital Signs/Labs
Vital Signs
Temp Pulse Resp BP Pulse Ox
36.8 C 64 18 113/76 96
04/17/24 04:49 04/17/24 05:15 04/16/24 22:13 04/17/24 04:48 04/17/24 04:49
04/15/24 04/16/24 04/17/24
11:59 11:59 11:59
Actual Weight 97.8 kg 97.7 kg 97.7 kg
04/17/24 04:50
04/16/24 04:21
APTT Cancelled 04/15/24 13:00
Triglycerides 173 mg/dl (10-149) H 04/16/24 04:21
LDL Cholesterol, Calc 108 mg/dl 04/16/24 04:21
VLDL Cholesterol, Calc 34 mg/dl (0-30) H 04/16/24 04:21
HDL Cholesterol 42 mg/dl 04/16/24 04:21
LAB Results
04/15/24 04/15/24 04/15/24
03:59 08:00 10:14
Troponin I 0.044 H* Cancelled 2.770 H* D
04/15/24 04/15/24 04/15/24
14:00 16:44 20:00
Troponin I Cancelled 38.800 H* D Cancelled
04/16/24
10:05
Troponin I 16.800 H*
Physical Exam
Constitutional: No acute distress and Comfortable
EENT: Anicteric and Moist mucous membranes
Cardiovascular: Rhythm & rate is regular, Pedal edema is absent, JVD pressure is normal, S1S2 is normal and Murmur/rub/gallop absent
Respiratory: Respiratory effort normal, Lungs clear to auscul., Wheeze Absent, Crackles Absent and Rhonchi Absent
GI: Soft, Distention absent, Flat, Non tender and Normal bowel sounds
Neuro/Psych: AO x 3
Other: Cath Site (Right radial access site is C/D/I.)
Data Reviewed
-
Date of Service: April 17, 2024
Medical Decision Making: Reviewed Test Results, Independent Historian Assessment, Test Interpretation and Review of Case with other Provider
EKG: Tracing Personally Visualized and interpreted and Report Reviewed by me
Echo: Tracing Personally Visualized and interpreted
X-Ray/CT/US/MRI/NUC/PET: Image Personally Visualized and interpreted and Report Reviewed by me
Medical Tests (PFT, Pathology etc): Image Personally Visualized and interpreted and Report Reviewed by me
Labs: Labs Reviewed by me
Old Records: Reviewed
[2024-04-17 07:59] VITALS: BP 139/124
[2024-04-17 08:00] VITALS: BP 138/78
[2024-04-17] MEDS: BRILINTA 90 MG PO (08:51)
[2024-04-17] MEDS: LOW STRENGTH ASPIRIN 81 MG PO (08:51)
[2024-04-17] MEDS: GLUCOPHAGE 500 MG PO (08:52)
[2024-04-17] MEDS: TOPROL XL 25 MG PO (08:52)
[2024-04-17] MEDS: COZAAR 25 MG PO (08:52)
--- NOTE | 2024-04-17 11:40 | CM ---
CM following for DC planning needs.
Met w/ patient + spouse at bedside.
Pt. feels well, is hopeful for DC soon.
Wishes to discuss Brilinta v alternative w/ MD. Also expressed concern w/ bleeding risk on this medication. Encouraged to speak with MD.
Plan is for home, no needs.
Will remain avail.
[2024-04-17 12:00] VITALS: BP 121/77
--- NOTE | 2024-04-17 13:46 | W.DS.TRANS ---
DC Summary - [employer] Specialist
-
Discharge Instructions:
Discharge Diagnosis/Procedures Angioplasty and stent to Left Anterior
Descending artery and Diagonal artery
Diet Low Cholesterol
Driving Restrictions No driving for 24 hours
Bathing Restrictions None
Other Services Cardiac Rehab
Instructions:
Stand-Alone Forms: DC Instructions- Cath/EP Lab
Changes to Home Medications: Yes
Discharge Medications:
DC Medications w/original date entered in [employer]
aspirin 81 mg tablet,delayed release 81 mg PO DAILY 01/28/18
atorvastatin 40 mg tablet 40 mg PO QPM 90 days #90 tabs 04/17/24
losartan 25 mg tablet 25 mg PO DAILY 90 days #90 tabs 04/17/24
metformin 500 mg tablet 500 mg PO BID@0800,1700 90 days #180 tabs 04/17/24
metoprolol succinate 25 mg tablet,extended release 24 hr 25 mg PO DAILY 90 days #90 tabs 04/17/24
nitroglycerin 0.4 mg sublingual tablet 0.4 mg sublingual [id number] PRN Chest Pain 30 days #25 tabs 04/17/24
ticagrelor 90 mg tablet (Brilinta) 90 mg PO BID #180 tabs 04/17/24
Home Medication Changes
Please start taking:
1. Atorvastatin 40 mg daily
2. Losartan 25 mg daily.
3. Metformin 500 mg two times daily.
4. Metoprolol succinate (Toprol XL) 25 mg daily.
5. Ticagrelor (Brillinta) 90 mg two times daily.
6. Nitroglycerin 0.4 mg - one tablet under the tongue every five minutes as needed for chest pain. If chest pain remains after 3rd dose, call 911.
Pending Results: No
--- NOTE | 2024-04-17 14:14 | W.DCSUMMARY ---
Discharge Summary
Discharge Data
Date of Admission: 04/15/24
Date of Discharge: 04/17/24
-
Pending Results: No
Hospital Course
Mr. Membreno is a 68-year-old male with a medical history of testicular cancer (treated) who presented with persistent left chest and shoulder discomfort with exertion over the past week prior to arrival associated with dyspnea on exertion. His
symptoms progressed into crushing chest pain. He has a strong family history of coronary artery disease with multiple family members experiencing CA in their early 50s. In the ED, troponins were elevated with EKG showing abnormal ST changes in V2
through V4 new compared to previous. He was started on IV heparin drip and nitroglycerin drip and admitted for management of NSTEMI. He was brought for left heart catheterization on 04/15 which revealed obstructive disease in the proximal and mid
LAD and also in the first diagonal, all of which were stented. He tolerated the procedure well and has been started on dual antiplatelet therapy with aspirin and Brilinta. He will need to continue dual antiplatelet therapy for at least 12 months
and continue high intensity statin therapy indefinitely. His fasting lipid profile was abnormal with triglycerides of 173. Echocardiogram during this admission showed reduced LVEF of 45%. He will need cardiac rehab after discharge and repeat
echocardiogram in 2 months. He will be started on guideline directed medical therapy with metoprolol succinate for beta-blockade and low-dose losartan for afterload reduction. He was also found to be borderline diabetic with a hemoglobin A1c of
6.5% at the time of admission. He has been started on low-dose metformin for diabetic treatment and should follow-up closely with his PCP for ongoing monitoring. At the time of hospital discharge he was hemodynamically stable. He will need close
follow-up with cardiology and with his primary care physician.
Gen-AAOx3, NAD
HEENT-NC, AT, anicteric, clear oral mm
Neck-supple
CV-reg, no M, +S1/S2
Lungs-clear B/L
Abd-soft, NT, ND
Musculoskeletal-no edema, no deformity
Skin-warm and dry, right wrist vascular access site clean dry intact
Neuro-grossly non-focal
Psych-calm, cooperative
Discharge Plan
-
Patient Disposition: Home (Routine Discharge)
Discharge Diagnosis/Procedures: Angioplasty and stent to Left Anterior Descending artery and Diagonal artery
Condition: Good
Diet: Low Cholesterol
Driving Restrictions: No driving for 24 hours
Bathing Restrictions: None
Other Services: Cardiac Rehab
Stand Alone Forms: DC Instructions- Cath/EP Lab
Referrals:
[facility] [Outside] - 05/08/24 1:00 pm
(Cardiac Rehab Orientation appointment is on May 08 at 1pm.
The Cardiac Rehab gym is located on the first floor of the [facility].)
Samina Moses CRNP [Specified Professional Personl] - 05/06/24 11:20 am (Cardiology followup appointment)
Ramana Dougherty MD [Active] -
Prescriptions:
New
Brilinta 90 mg Tablet
90 mg PO BID Qty: 180 3RF
atorvastatin 40 mg Tablet
40 mg PO QPM 90 Days Qty: 90 3RF
metformin 500 mg Tablet
500 mg PO BID@0800,1700 90 Days Qty: 180 3RF
losartan 25 mg Tablet
25 mg PO DAILY 90 Days Qty: 90 3RF
nitroglycerin 0.4 mg Tablet, Sublingual
0.4 mg sublingual [id number] PRN (Reason: Chest Pain) 30 Days Qty: 25 3RF
metoprolol succinate 25 mg Tablet Extended Release 24 Hr
25 mg PO DAILY 90 Days Qty: 90 3RF
Continued
aspirin 81 MG tablet,delayed release (DR/EC)
81 mg PO DAILY
Discharge Orders:
Discharge Patient (As Directed); Ordered 04/17/24
Ordered By: Elroy Gonzales
Care Plan Goals
Care Plan Goals:
Problem: Readiness for enhanced knowledge related to diagnosis and treatment plan
Goal: Understand your diagnosis and treatment plan needs, including medications if applicable.
Instructions: Know your diagnosis, underlying causes and treatment plan options, including medications if applicable. Consult with your health care team to learn about your diagnosis and treatment plan, including medications if applicable.
Discharge Date and Time
Print Language: SPANISH
--- NOTE | 2024-04-17 14:35 | PTCARENOTE ---
IV and tele removed. Discharge instructions reviewed w/ pt. Verbalizes understanding. Belongings collected and sent home w/ pt. Escorted via WC and staff assist. Discharged to home.
== END 2024-04-17 14:37 | disposition home or self-care (01) | DRG 323 ==
LOC: IVU 06:29
PROVIDERS: Student in an Organized Health Care Education/Training Program; ADMITTING PHYSICIAN Hospitalist; ATTENDING PHYSICIAN Internal Medicine; EMERGENCY PHYSICIAN Student in an Organized Health Care Education/Training Program; OTHER PHYSICIAN Internal Medicine Cardiovascular Disease
PROC: B211YZZ Fluoroscopy of Multiple Coronary Arteries using Other Contrast (ICD-10-PCS; 2024-04-15)
PROC: 4A023N7 Measurement of Cardiac Sampling and Pressure, Left Heart, Percutaneous Approach (ICD-10-PCS; 2024-04-15)
PROC: 027136Z Dilation of Coronary Artery, Two Arteries with Three Drug-eluting Intraluminal Devices, Percutaneous Approach (ICD-10-PCS; 2024-04-15)
PROC: 02F03ZZ Fragmentation in Coronary Artery, One Artery, Percutaneous Approach (ICD-10-PCS; 2024-04-15)
PROC: B240ZZ3 Ultrasonography of Single Coronary Artery, Intravascular (ICD-10-PCS; 2024-04-15)
DX: I21.4 Non-ST elevation (NSTEMI) myocardial infarction (principal); I50.21 Acute systolic (congestive) heart failure; I25.10 Atherosclerotic heart disease of native coronary artery without angina pectoris; I10 Essential (primary) hypertension; I25.5 Ischemic cardiomyopathy; E78.5 Hyperlipidemia, unspecified; R73.03 Prediabetes; Z85.47 Personal history of malignant neoplasm of testis; Z82.49 Family history of ischemic heart disease and other diseases of the circulatory system; Z79.82 Long term (current) use of aspirin; Z92.21 Personal history of antineoplastic chemotherapy
CPT/HCPCS: 71046; 80048; 80053; 80061; 83036; 84484; 85025; 85027; 85347; 85730; 86803; 92972; 92978; 93005; 93306; 93458; 96365; 99152; 99153; 99291; C1725; C1753; C1761; C1769; C1874; C9600

== ENCOUNTER 2024-05-14 09:57 | Outpatient (RCR) | payer OTHER, SELFPAY ==
[2024-05-08 14:41] LABS: Glucose - Point of Care 139 mg/dl (70-99)
[2024-05-08 15:55] LABS: Glucose - Point of Care 97 mg/dl (70-99)
[2024-05-12 08:38] LABS: Glucose - Point of Care 120 mg/dl (70-99)
[2024-05-12 09:25] LABS: Glucose - Point of Care 111 mg/dl (70-99)
[2024-05-14 08:32] LABS: Glucose - Point of Care 131 mg/dl (70-99)
[2024-05-14 09:21] LABS: Glucose - Point of Care 105 mg/dl (70-99)
== END 2024-05-14 23:59 | disposition home or self-care (01) ==
LOC: CRHB 09:57
PROVIDERS: ATTENDING PHYSICIAN Internal Medicine Cardiovascular Disease
DX: I25.10 Atherosclerotic heart disease of native coronary artery without angina pectoris (principal); Z95.5 Presence of coronary angioplasty implant and graft
CPT/HCPCS: 82962; 93797; 93798

== ENCOUNTER 2024-06-11 10:34 | Outpatient (RCR) | payer OTHER, SELFPAY ==
[2024-05-19 08:40] LABS: Glucose - Point of Care 114 mg/dl (70-99)
[2024-05-19 09:34] LABS: Glucose - Point of Care 107 mg/dl (70-99)
[2024-05-21 08:35] LABS: Glucose - Point of Care 153 mg/dl (70-99)
[2024-05-21 09:29] LABS: Glucose - Point of Care 98 mg/dl (70-99)
[2024-05-26 08:33] LABS: Glucose - Point of Care 144 mg/dl (70-99)
[2024-05-26 09:26] LABS: Glucose - Point of Care 104 mg/dl (70-99)
== END 2024-06-11 23:59 | disposition home or self-care (01) ==
LOC: CRHB 10:34
PROVIDERS: ATTENDING PHYSICIAN Internal Medicine Cardiovascular Disease; FAMILY PHYSICIAN Family Medicine
DX: I25.10 Atherosclerotic heart disease of native coronary artery without angina pectoris (principal); I21.4 Non-ST elevation (NSTEMI) myocardial infarction (principal); Z95.5 Presence of coronary angioplasty implant and graft; I25.2 Old myocardial infarction
CPT/HCPCS: 82962; 93797; 93798; G0422; G0423

== ENCOUNTER 2024-07-02 14:00 | Outpatient (RCR) | payer OTHER, SELFPAY | END 2024-07-02 23:59 | disposition home or self-care (01) | LOC: CRHB 14:00 | PROVIDERS: ATTENDING PHYSICIAN Internal Medicine Cardiovascular Disease; FAMILY PHYSICIAN Family Medicine | DX: I21.4 Non-ST elevation (NSTEMI) myocardial infarction (principal); I25.2 Old myocardial infarction; I25.10 Atherosclerotic heart disease of native coronary artery without angina pectoris; Z95.5 Presence of coronary angioplasty implant and graft | CPT/HCPCS: 93797; 93798 ==

== ENCOUNTER → 2024-07-24 09:40 | Outpatient (REF) | payer OTHER, SELFPAY | LOC: RCS 09:40 | PROVIDERS: ATTENDING PHYSICIAN Nurse Practitioner; FAMILY PHYSICIAN Family Medicine | DX: I25.5 Ischemic cardiomyopathy (principal) | CPT/HCPCS: 93308; 93321; 93325 ==

== ENCOUNTER → 2024-12-12 08:06 | Outpatient (REF) | payer OTHER, SELFPAY | LOC: MRI 08:06 | PROVIDERS: ATTENDING PHYSICIAN Nurse Practitioner Family | DX: R41.3 Other amnesia (principal) | CPT/HCPCS: 70553 ==

== ENCOUNTER 2024-12-12 09:34 | Emergency (ER) | payer OTHER, SELFPAY ==
[2024-12-12 09:38] VITALS: BP 147/83
--- NOTE | 2024-12-12 10:36 | ED.GENMED ---
History of Present Illness
<SHEA Hernandez Last Filed: 12/12/24 10:58>
General
Chief Complaint: Change in Mental Status
Source: patient
Time Seen by Provider: 12/12/24 09:57
History of Present Illness
History of Present Illness:
69-year-old male with history of myocardial infarction on Brilinta and aspirin also has prediabetes and treated for hypertension presents complaining of 2 to 3 weeks worth of forgetfulness occasional agitation and difficulty completing tasks. He
denies a headache or vision change. No vomiting. No chest pain or shortness of breath. No fevers or trauma. He was sent for an outpatient MRI of his brain by his family doctor and had that completed this morning. He was sent right from MRI to
the emergency room for evaluation.
Past History
<SHEA Hernandez Last Filed: 12/12/24 10:58>
Past History
ED Past Medical History: HTN, Hypercholesterolemia and Other (Previous known left meniscal tear 2011 previous testicular cancer)
Social History
Tobacco: Non-smoker
Alcohol: Occasional
Family History
Family History: Negative Diabetes
Phy Exam
<SHEA Hernandez Last Filed: 12/12/24 10:58>
Physical Exam
Physical Exam:
General: Well-appearing male no acute respiratory distress
HEENT normal cephalic atraumatic pupils equal round reactive to light face is symmetric
Heart: Regular rate and rhythm
Lungs: Clear no wheeze
Neurologic exam: Alert somewhat slow to respond to questions at times and has a hard time completing thoughts. No obvious motor deficit there is no drift on exam he has good strength. Finger-nose nota-ot-ifpd is intact.
Musculoskeletal exam: No C-spine tenderness
Course
<SHEA Hernandez Last Filed: 12/12/24 10:58>
Orders/Labs/Results
Orders:
Orders
12/12/24 10:35
Complete Blood Count/With Diff Urgent
Dexamethasone Sod Phosphate [Decadron] 10 mg IV NOW STA
12/12/24 10:36
Comprehensive Metabolic Panel Urgent
Vital Signs
Initial and Last Documented VS:
Initial Vital Signs
Temp Pulse Resp BP Pulse Ox
98.5 F 62 16 147/83 98
12/12/24 09:38 12/12/24 09:38 12/12/24 09:38 12/12/24 09:38 12/12/24 09:38
Last Documented Vital Signs
Temp Pulse Resp BP Pulse Ox
98.5 F 62 16 147/83 98
12/12/24 09:38 12/12/24 09:38 12/12/24 09:38 12/12/24 09:38 12/12/24 10:39
<Elsa Rodriguez MD - Last Filed: 12/12/24 11:09>
Orders/Labs/Results
Orders:
Orders
12/12/24 10:35
Complete Blood Count/With Diff Urgent
Dexamethasone Sod Phosphate [Decadron] 10 mg IV NOW STA
12/12/24 10:36
Comprehensive Metabolic Panel Urgent
Vital Signs
Initial and Last Documented VS:
Initial Vital Signs
Temp Pulse Resp BP Pulse Ox
98.5 F 62 16 147/83 98
12/12/24 09:38 12/12/24 09:38 12/12/24 09:38 12/12/24 09:38 12/12/24 09:38
Last Documented Vital Signs
Temp Pulse Resp BP Pulse Ox
98.5 F 62 16 147/83 98
12/12/24 09:38 12/12/24 09:38 12/12/24 09:38 12/12/24 09:38 12/12/24 10:39
<Zi Xie PA-C - Last Filed: 12/12/24 10:58>
MDM/Problems Addressed
Differential Diagnosis Includes:
Patient sent for an outpatient MRI by family doctor and was sent here from MRI. Findings on MRI show
IMPRESSION:
7.7 x 4.8 x 4.4 cm homogeneously enhancing mass in the right frontal lobe that appears to be extra-axial and has an enhancing dural tail. The imaging features are most suggestive of a large meningioma. Right frontal lobe vasogenic edema, localized
mass effect, and 1.2 cm of leftward midline shift.
Discussed with patient relayed the information to the patient and . Also discussed with neurosurgery, Dr. Garduno who recommended transfer to [place]. Decadron 10 mg was ordered IV.
Will call [facility] for transfer to ED
<Zi Xie PA-C - Last Filed: 12/12/24 10:58>
*Pulse Oximetry
SaO2: 98
Oxygen Mode of Delivery: Room air
Patient hypoxic: no
*Critical Care Note
Total Time (30-74mins, 75-104mins- exclusive of procedures): Not Applicable
<Zi Xie PA-C - Last Filed: 12/12/24 10:58>
Update Note
Update Note:
Discussed with neurosurgery, Dr. Garduno who has accepted the patient in transfer to [place]. Arranges were made for transportation. 10 mg IV Decadron ordered. Consent obtained for transfer from the patient
ED Attending Note
<Zi Xie PA-C - Last Filed: 12/12/24 10:58>
-
Portions of this chart may have been created with voice recognition software.� Occasional wrong word or��sound alike� substitutions may have occurred due to the inherent limitations of voice recognition software.
<Elsa Rodriguez MD - Last Filed: 12/12/24 11:09>
ED Attending Note
Patient seen and examined by attending physician: Yes
I performed the substantive portion of visit, reviewed & personally made and approve the management plan that is documented in note by myself or DIONNE.: Yes
ED Attending Note:
Patient appears alert and oriented x 3. He is breathing comfortably. Heart sounds normal. He has 5 out of 5 strength without drift.
Discharge Plan
Departure
Patient Disposition: Acute Care Hospital
Date of Disposition: 12/12/24
Time of Disposition: 10:57
Patient with high blood pressure during this ER visit?: No
Discharge Problem:
Brain mass
Prescriptions:
No Action
aspirin 81 MG tablet,delayed release (DR/EC)
81 mg PO DAILY
Brilinta 90 mg Tablet
90 mg PO BID Qty: 180 3RF
atorvastatin 40 mg Tablet
40 mg PO QPM 90 Days Qty: 90 3RF
metformin 500 mg Tablet
500 mg PO BID@0800,1700 90 Days Qty: 180 3RF
losartan 25 mg Tablet
25 mg PO DAILY 90 Days Qty: 90 3RF
nitroglycerin 0.4 mg Tablet, Sublingual
0.4 mg sublingual [id number] PRN (Reason: Chest Pain) 30 Days Qty: 25 3RF
metoprolol succinate 25 mg Tablet Extended Release 24 Hr
25 mg PO DAILY 90 Days Qty: 90 3RF
Referrals:
Gypsy Marlow CRNP [Family Provider, Family Practice]
Hospital Transfer
Other hospital: [facility]
I certify that the patient requires transfer: Yes
Discussed case with accepting physician: Dr. Garduno
Reason for transfer: higher level of care and availability of service
Interventions
Interventions:
*Risk Screen - Suicide Last Done: 12/12/24 09:38
*Neglect/Abuse Screening Last Done: 12/12/24 09:38
Discharge Date and Time
Print Language: BELARUSIAN
[2024-12-12 10:55] VITALS: BMI 29.1
[2024-12-12 11:01] VITALS: BP 126/70
[2024-12-12] MEDS: DECADRON 10 MG IV (11:43)
[2024-12-12 12:00] LABS: Hematocrit 42.4 % (39.0-52.0); Hemoglobin 14.2 g/dL (13.0-18.0); Mean Corp Hgb Conc. 33.5 g/dL (33.0-37.0); Mean Corpuscular Volume 92.6 fL (80.0-94.0); Nucleated Red Blood Cells % 0 % (-); Platelet Count 198 10^3/uL (130-400); Red Cell Dist. Width 12.1 % (11.5-14.5)
[2024-12-12 12:32] LABS: ALT (SGPT) 22 U/L (0-50); AST (SGOT) 23 U/L (17-59); Albumin 4.2 g/dl (3.5-5.0); Alkaline Phosphatase 68 U/L (38-126); Blood Urea Nitrogen 20 mg/dl (9-20); Calcium 9.0 mg/dl (8.4-10.2); Carbon Dioxide 29 mmol/L (22-30); Chloride 105 mmol/L (98-107); Estimated Creatinine Clearance 87 ml/min; Glucose 96 mg/dl (70-99); Potassium 4.5 mmol/L (3.5-5.1); Sodium 139 mmol/L (135-145); Total Protein 6.9 g/dl (6.3-8.2); eGFR > 60.00
[2024-12-12 12:41] VITALS: BP 113/66
--- NOTE | 2024-12-12 12:43 | EDRN ---
Report given to Zoraida Bhakta RN at [facility] and [facility] transport team.
[2024-12-12 12:47] VITALS: BP 113/66
== END 2024-12-12 12:45 | disposition short-term general hospital (02) ==
LOC: EMR 09:34
PROVIDERS: Physician Assistant; EMERGENCY PHYSICIAN Emergency Medicine; FAMILY PHYSICIAN Nurse Practitioner Family
DX: G93.9 Disorder of brain, unspecified (principal); I25.2 Old myocardial infarction; E78.00 Pure hypercholesterolemia, unspecified; I10 Essential (primary) hypertension; R73.03 Prediabetes; Z79.02 Long term (current) use of antithrombotics/antiplatelets; Z79.82 Long term (current) use of aspirin; Z85.47 Personal history of malignant neoplasm of testis
CPT/HCPCS: 99285; 96374; 80053; 85025

== ENCOUNTER → 2025-01-13 13:15 | Outpatient (REF) | payer OTHER, SELFPAY ==
[2025-01-13 14:54] LABS: Hematocrit 42.0 % (39.0-52.0); Hemoglobin 13.4 g/dL (13.0-18.0); Mean Corp Hgb Conc. 31.9 g/dL (33.0-37.0); Mean Corpuscular Volume 97.7 fL (80.0-94.0); Nucleated Red Blood Cells % 0 % (-); Platelet Count 322 10^3/uL (130-400); Red Cell Dist. Width 13.0 % (11.5-14.5)
[2025-01-13 15:23] LABS: ALT (SGPT) 71 U/L (0-50); AST (SGOT) 46 U/L (17-59); Albumin 3.8 g/dl (3.5-5.0); Alkaline Phosphatase 82 U/L (38-126); Blood Urea Nitrogen 15 mg/dl (9-20); Calcium 9.6 mg/dl (8.4-10.2); Carbon Dioxide 31 mmol/L (22-30); Chloride 98 mmol/L (98-107); Glucose 153 mg/dl (70-99); Potassium 5.0 mmol/L (3.5-5.1); Sodium 138 mmol/L (135-145); Total Protein 6.8 g/dl (6.3-8.2); eGFR > 60.00
[2025-01-14 12:37] LABS: Lyme Antibody Screen, EIA Presump. Positive (Negative)
== END ==
LOC: RAD 13:15
PROVIDERS: ATTENDING PHYSICIAN Physician Assistant; FAMILY PHYSICIAN Nurse Practitioner Family
DX: R50.9 Fever, unspecified (principal); R05.1 Acute cough
CPT/HCPCS: 36415; 71046; 80053; 85025; 86617; 86618

== ENCOUNTER → 2025-01-15 15:27 | Outpatient (REF) | payer OTHER, SELFPAY ==
[2025-01-15 16:30] LABS: Procalcitonin < 0.05 ng/ml (0.0-0.25)
== END ==
LOC: REG 15:27
PROVIDERS: ATTENDING PHYSICIAN Physician Assistant; FAMILY PHYSICIAN Nurse Practitioner Family
DX: A68.9 Relapsing fever, unspecified (principal)
CPT/HCPCS: 36415; 84145

== ENCOUNTER → 2025-01-21 13:13 | Outpatient (REF) | payer OTHER, SELFPAY ==
[2025-01-21 14:00] LABS: Hematocrit 38.3 % (39.0-52.0); Hemoglobin 12.5 g/dL (13.0-18.0); Mean Corp Hgb Conc. 32.6 g/dL (33.0-37.0); Mean Corpuscular Volume 92.1 fL (80.0-94.0); Nucleated Red Blood Cells % 0 % (-); Platelet Count 466 10^3/uL (130-400); Red Cell Dist. Width 12.8 % (11.5-14.5)
[2025-01-21 15:36] LABS: ALT (SGPT) 50 U/L (0-50); AST (SGOT) 25 U/L (17-59); Albumin 3.8 g/dl (3.5-5.0); Alkaline Phosphatase 98 U/L (38-126); Blood Urea Nitrogen 19 mg/dl (9-20); Calcium 9.3 mg/dl (8.4-10.2); Carbon Dioxide 29 mmol/L (22-30); Chloride 98 mmol/L (98-107); Glucose 93 mg/dl (70-99); Potassium 4.5 mmol/L (3.5-5.1); Sodium 136 mmol/L (135-145); Total Protein 6.8 g/dl (6.3-8.2); eGFR > 60.00
== END ==
LOC: REG 13:13
PROVIDERS: ATTENDING PHYSICIAN Physician Assistant; FAMILY PHYSICIAN Nurse Practitioner Family
DX: A68.9 Relapsing fever, unspecified (principal)
CPT/HCPCS: 36415; 80053; 85025

== ENCOUNTER → 2025-01-27 11:04 | Outpatient (REF) | payer OTHER, SELFPAY ==
[2025-01-27 12:11] LABS: Urine Character Clear (Clear)
[2025-01-27 12:35] LABS: Iron 79 ug/dl (49-181)
[2025-01-27 12:55] LABS: Hematocrit 40.4 % (39.0-52.0); Hemoglobin 13.5 g/dL (13.0-18.0); Mean Corp Hgb Conc. 33.4 g/dL (33.0-37.0); Mean Corpuscular Volume 92.9 fL (80.0-94.0); Nucleated Red Blood Cells % 0 % (-); Platelet Count 358 10^3/uL (130-400); Red Cell Dist. Width 12.8 % (11.5-14.5)
[2025-01-27 13:12] LABS: Ferritin 334.0 ng/ml (17.9-464.0)
[2025-01-27 13:27] LABS: Vitamin B12 576 pg/ml (239-931)
[2025-01-27 13:43] LABS: Urine Red Blood Cell None Seen /HPF (0-2); Urine Squamous Cell 0-2 /LPF (Few); Urine White Cell 0-2 /HPF (0-5)
== END ==
LOC: REG 11:04
PROVIDERS: ATTENDING PHYSICIAN Physician Assistant; FAMILY PHYSICIAN Nurse Practitioner Family
DX: D64.9 Anemia, unspecified (principal)
CPT/HCPCS: 36415; 81003; 81015; 82607; 82728; 83540; 85025

== ENCOUNTER 2025-02-12 06:45 | Outpatient (RCR) | payer OTHER, SELFPAY | END 2025-02-12 23:59 | disposition home or self-care (01) | LOC: RPT 06:45 | PROVIDERS: ATTENDING PHYSICIAN Student in an Organized Health Care Education/Training Program; FAMILY PHYSICIAN Nurse Practitioner Family | DX: D32.0 Benign neoplasm of cerebral meninges (principal); Z73.6 Limitation of activities due to disability; R26.2 Difficulty in walking, not elsewhere classified; M62.81 Muscle weakness (generalized); Z98.890 Other specified postprocedural states | CPT/HCPCS: 97110; 97112; 97129; 97130; 97163; 97530 ==

== ENCOUNTER 2025-03-16 07:12 | Outpatient (RCR) | payer OTHER, SELFPAY | END 2025-03-16 23:59 | disposition home or self-care (01) | LOC: RPT 07:12 | PROVIDERS: ATTENDING PHYSICIAN Student in an Organized Health Care Education/Training Program; FAMILY PHYSICIAN Nurse Practitioner Family | DX: D32.0 Benign neoplasm of cerebral meninges (principal); Z73.6 Limitation of activities due to disability; R41.841 Cognitive communication deficit; R26.2 Difficulty in walking, not elsewhere classified; M62.81 Muscle weakness (generalized); Z98.890 Other specified postprocedural states | CPT/HCPCS: 97110; 97112; 97129; 97130; 97530; 97535; 97537 ==